=== PATIENT | male | born 1965 | race Caucasian/White ===

== ENCOUNTER 2018-12-17 05:59 | Emergency (ER) | payer SELFPAY ==
[2018-12-17] MEDS ORDERED: ASPIRIN 81 MG CHEWABLE TABLET PO ONE (06:01)
[2018-12-17] MEDS: NITROGLYCERIN 0.4MG SL TABLET #25 BTL SL PRN ×3 (06:07→06:33)
[2018-12-17 06:18] LABS: ABSOLUTE NEUTROPHIL COUNT 4.28; BASO % 0.4 % (0-6); EOS % 2.7 % (0-6); GRAN % 55.7 % (47-80); HEMATOCRIT 39.6 % (42.0-52.0); LYMPH % 32.9 % (16-45); MEAN CELL VOLUME 94.7 fl (81-97); MEAN CORPUSCULAR HEMOGLOBIN 31.1 pg (27-33); MEAN CORPUSCULAR HGB CONC 32.8 g/dl (32-36); MEAN PLATELET VOLUME 10.8 fl (7.4-10.4); MONO % 8.3 % (0-9); PLATELET COUNT 239 K/uL (130-400); RED BLOOD COUNT 4.18 M/uL (4.40-5.70); RED CELL DISTRIBUTION WIDTH 12.5 % (11.5-14.5); WHITE BLOOD COUNT W/O DIFF 7.7 K/uL (4.2-12.2)
[2018-12-17 06:38] LABS: BLOOD UREA NITROGEN 19 mg/dL (6-20); CREATININE 0.9 mg/dL (0.7-1.2); EST GLOMERULAR FILTRATION RATE > 60 mL/min
[2018-12-17 06:39] LABS: TOTAL PROTEIN 7.8 g/dL (6.6-8.7)
[2018-12-17 06:41] LABS: GLUCOSE,RANDOM 98 mg/dL (74-109)
[2018-12-17 06:43] LABS: ALB/GLOB RATIO 1.4 (1.1-1.8); ALBUMIN 4.6 g/dL (4.0-5.0); ALKALINE PHOSPHATASE 72 U/L (40-129); ALT/SGPT 15 U/L (<41); AST/SGOT 36 U/L (10.0-50.0)
[2018-12-17 06:44] LABS: CREATINE PHOSPHOKINASE 145 U/L (39-308)
[2018-12-17 06:46] LABS: CKMB 2.5 ng/mL (<6.73); NTpro B-NATRIURETIC PEPTIDE 22.99 pg/mL (<125)
--- NOTE | 2018-12-17 07:01 | Emergency Department Record ---
History of Present Illness - General Chief Complaint: Chest Pain Stated Complaint: CHEST PAIN Time Seen by Provider: 12/17/18 06:00 Source: Patient Mode of Arrival: Ambulatory Limitations: No limitations - History of Present Illness Initial Comments: pt developed cp last night that is sharp and that gets worse with inspiration. he has never had anything like this before. he has a hx of htn. the pain got worse this am. he smokes. grandparents had cad. pt had a heart cath 4 yrs ago which he said showed nothing. pt has no nausea. pain does radiate down l arm. no nausea but pos sob. MD Complaint: Chest pain Onset/Timin -: Days(s) Pain Location: Left chest Pain Radiation: LUE Severity scale (1-10): 5 Quality: Aching, Dull, Sharp Consistency: Constant Improves With: Rest Worsens With: Inspiration - Related Data Home Medications Medication Instructions Recorded Confirmed Last Taken Amlodipine Besylate 5 mg PO DAILY 12/17/18 12/17/18 12/16/18 Aspirin [Aspir-Low] 81 mg PO DAILY 12/17/18 12/17/18 12/16/18 Allergies Allergy/AdvReac Type Severity Reaction Status Date / Time No Known Drug Allergies Allergy Verified 12/17/18 06:19 Travel Screening - Travel/Exposure Within Last 30 Days Have you traveled within the last 30 days?: No - Travel/Exposure Within Last Year Have you traveled outside the [place] in the last year?: No - Additonal Travel Details Have you been exposed to anyone with a communicable illness?: No - Travel Symptoms Symptom Screening: None Review of Systems Reviewed: No additional complaints except as noted below Constitutional: Reports: As per HPI. Denies: Chills, Fever, Malaise, Night sweats, Weakness, Weight change Eyes: Reports: As per HPI. Denies: Eye discharge, Eye pain, Photophobia, Vision change ENT: Reports: As per HPI. Denies: Congestion, Dental pain, Ear pain, Epistaxis, Hearing loss, Throat pain Respiratory: Reports: As per HPI. Denies: Cough, Dyspnea, Hemoptysis, Stridor, Wheezes Cardiovascular: Reports: As per HPI, Chest pain. Denies: Arrhythmia, Dyspnea on exertion, Edema, Murmurs, Orthopnea, Palpitations, Paroxysmal nocturnal dyspnea, Rheumatic Fever, Syncope Endocrine: Reports: As per HPI. Denies: Fatigue, Heat or cold intolerance, Polydipsia, Polyuria Gastrointestinal: Reports: As per HPI. Denies: Abdominal pain, Constipation, Diarrhea, Hematemesis, Hematochezia, Melena, Nausea, Vomiting Genitourinary: Reports: As per HPI. Denies: Dysuria, Frequency, Hematuria, Incontinence, Retention, Testicular pain, Testicular mass, Urgency Musculoskeletal: Reports: As per HPI. Denies: Arthralgia, Back pain, Gout, Joint swelling, Myalgia, Neck pain Skin: Reports: As per HPI. Denies: Bruising, Change in color, Change in hair/nails, Lesions, Pruritus, Rash Neurological: Reports: As per HPI. Denies: Abnormal gait, Confusion, Headache, Numbness, Paresthesias, Seizure, Tingling, Tremors, Vertigo, Weakness Psychiatric: Reports: As per HPI. Denies: Anxiety, Auditory hallucinations, Depression, Homicidal thoughts, Suicidal thoughts, Visual hallucinations Hematological/Lymphatic: Reports: As per HPI. Denies: Anemia, Blood Clots, Easy bleeding, Easy bruising, Swollen glands Past Medical History - SOCIAL HISTORY Smoking Status: Current every day smoker Alcohol Use: Occasional Drug Use: None - CARDIOVASCULAR Hx Hypertension: Yes - NEURO Hx Dizziness: Yes - GI Hx GI Disorders: No - Hx Genitourinary Disorders: No - PSYCH Hx Anxiety: Yes Family Medical History Any Significant Family History?: Yes Hx HTN: Father, Brother/Sister Physical Exam - General General Appearance: Alert, Oriented x3, Cooperative, Mild distress - Head Head exam: Normal inspection - Eye Eye exam: Normal appearance, PERRL, EOMI Pupils: Normal accommodation - ENT ENT exam: Normal exam, Mucous membranes moist, Normal external ear exam, Normal orophraynx Ear exam: Normal external inspection. negative: External canal tenderness Nasal Exam: Normal inspection. negative: Discharge, Sinus tenderness Mouth exam: Normal external inspection, Tongue normal Teeth exam: Normal inspection. negative: Dental caries Throat exam: Normal inspection. negative: Tonsillar erythema, Tonsillar exudate - Neck Neck exam: Normal inspection, Full ROM. negative: Tenderness - Respiratory Respiratory exam: Normal lung sounds bilaterally. negative: Respiratory distress - Cardiovascular Cardiovascular Exam: Normal rhythm, Normal heart sounds, Tachycardia - GI/Abdominal GI/Abdominal exam: Soft, Normal bowel sounds. negative: Tenderness - Rectal Rectal exam: Deferred - exam: Deferred - Extremities Extremities exam: Normal inspection, Full ROM, Normal capillary refill. negative: Tenderness - Back Back exam: Reports: Normal inspection, Full ROM. 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 ] Respiratory 20 20 16 Rate Blood Pressure 166/95 156/91 130/89 [Left Arm] Pulse Ox 100 96 12/17/18 06:35 Temperature Pulse Rate [ 94 H Biomedical Field Service Engineer ] Respiratory 14 Rate Blood Pressure 128/92 [Left Arm] Pulse Ox 94 L - Reevaluation(s) Reevaluation #1: 12/17/18 07:04 cp went from a 07/10 to 06/10 with ntg Reevaluation #2: 12/17/18 07:20 care being assumed by dr oakes Medical Decision Making - Lab Data Result diagrams: 12/17/18 06:10 12/17/18 06:10 Lab Results 12/17/18 12/17/18 12/17/18 Range/Units 06:10 06:10 06:15 WBC 7.7 (4.2-12.2) K/uL RBC 4.18 L (4.40-5.70) M/uL Hgb 13.0 L (14.0-18.0) gm/dl Hct 39.6 L (42.0-52.0) % MCV 94.7 (81-97) fl MCH 31.1 (27-33) pg MCHC 32.8 (32-36) g/dl RDW 12.5 (11.5-14.5) % Plt Count 239 (130-400) K/uL MPV 10.8 H (7.4-10.4) fl Gran % 55.7 (47-80) % Lymphocytes % 32.9 (16-45) % Monocytes % 8.3 (0-9) % Eosinophils % 2.7 (0-6) % Basophils % 0.4 (0-6) % Absolute Neutrophils 4.28 D-Dimer 1.13 H (0-0.59) mg/L FEU Sodium 139 (136-145) mmol/L Potassium 4.2 (3.4-4.5) mmol/L Chloride 105 (98-107) mmol/L Carbon Dioxide 23.0 (22-29) mmol/L Anion Gap 11.0 (7-16) BUN 19 (6-20) mg/dL Creatinine 0.9 (0.7-1.2) mg/dL Estimated GFR > 60 mL/min Random Glucose 98 (74-109) mg/dL Calcium 9.6 (8.6-10.0) mg/dL Total Bilirubin 0.20 (0.2-1.0) mg/dL AST 36 (10.0-50.0) U/L ALT 15 (<41) U/L Alkaline Phosphatase 72 (40-129) U/L Creatine Kinase 145 (39-308) U/L CK-MB (CK-2) 2.5 (<6.73) ng/mL Troponin T < 0.010 (0-0.010) ng/mL NT-Pro-B Natriuret Pep 22.99 (<125) pg/mL Total Protein 7.8 (6.6-8.7) g/dL Albumin 4.6 (4.0-5.0) g/dL Globulin 3.2 (1.4-4.8) gm/dL Albumin/Globulin Ratio 1.4 (1.1-1.8) Disposition Forms: Patient Portal Access Quality - Quality Measures Quality Measures: N/A - Blood Pressure Screening Does Patient Have Any of the Following: No Blood Pressure Classification: Hypertensive Reading Systolic Measurement: 128 Diastolic Measurement: 92 Screening for High Blood Pressure: < Pre-Hypertensive BP, F/U Documented > [G8950] Pre-Hypertensive Follow-up Interventions: Follow-up with rescreen every year.
[2018-12-17] MEDS ORDERED: KETOROLAC 30 MG/ML VIAL IVP ONE (07:05)
--- NOTE | 2018-12-17 07:58 | CT ANGIOGRAM REPORT ---
EXAMINATION: CT Angiography of the Thorax EXAM DATE: 12/17/2018 7:51 AM TECHNIQUE: Standard protocol CT angiogram images were obtained through the chest following the admini stration of intravenous contrast. Coronal and sagittal MIP 3-D reformations were performed. IV Contrast: The amount and type of contrast are recorded in the medical record. INDICATION: cp w hi d-dimer. COMPARISON: None ENCOUNTER: Not applicable FINDINGS: Pulmonary Artery: No pulmonary embolism is present. Aorta: No thoracic aortic aneurysm or dissection is present. Right Heart Strain: None. Heart : There is no pericardial effusion. Celeste and Mediastinum: No lymphadenopathy. Lung Parenchyma: Right upper lobe granuloma. Bibasilar discoid atelectasis or scarring Central Airways: Normal. Pleural Effusion: None. Upper Abdomen: Unremarkable. Musculoskeletal and Chest Wall: Unremarkable. IMPRESSION: 1. Negative pulmonary CTA 2. Bibasilar discoid atelectasis or scarring 3. Granulomatous disease Dictated by: Zechariah Porter MD on 12/17/2018 7:51 AM. .
--- NOTE | 2018-12-17 08:36 | Emergency Department Record ---
History of Present Illness - General Chief Complaint: Chest Pain Stated Complaint: CHEST PAIN Time Seen by Provider: 12/17/18 06:00 Source: Patient Mode of Arrival: Ambulatory Limitations: No limitations - History of Present Illness Onset/Timin -: Days(s) Pain Location: Left chest Pain Radiation: LUE Severity scale (1-10): 5 Quality: Aching, Dull, Sharp Consistency: Constant Improves With: Rest Worsens With: Inspiration - Related Data Home Medications Medication Instructions Recorded Confirmed Last Taken Amlodipine Besylate 5 mg PO DAILY 12/17/18 12/17/18 12/16/18 Aspirin [Aspir-Low] 81 mg PO DAILY 12/17/18 12/17/18 12/16/18 Allergies Allergy/AdvReac Type Severity Reaction Status Date / Time No Known Drug Allergies Allergy Verified 12/17/18 06:19 Travel Screening - Travel/Exposure Within Last 30 Days Have you traveled within the last 30 days?: No - Travel/Exposure Within Last Year Have you traveled outside the [place] in the last year?: No - Additonal Travel Details Have you been exposed to anyone with a communicable illness?: No - Travel Symptoms Symptom Screening: None Review of Systems Constitutional: Reports: As per HPI. Denies: Chills, Fever, Malaise, Night sweats, Weakness, Weight change Eyes: Reports: As per HPI. Denies: Eye discharge, Eye pain, Photophobia, Vision change ENT: Reports: As per HPI. Denies: Congestion, Dental pain, Ear pain, Epistaxis, Hearing loss, Throat pain Respiratory: Reports: As per HPI. Denies: Cough, Dyspnea, Hemoptysis, Stridor, Wheezes Cardiovascular: Reports: As per HPI, Chest pain. Denies: Arrhythmia, Dyspnea on exertion, Edema, Murmurs, Orthopnea, Palpitations, Paroxysmal nocturnal dyspnea, Rheumatic Fever, Syncope Endocrine: Reports: As per HPI. Denies: Fatigue, Heat or cold intolerance, Polydipsia, Polyuria Gastrointestinal: Reports: As per HPI. Denies: Abdominal pain, Constipation, Diarrhea, Hematemesis, Hematochezia, Melena, Nausea, Vomiting Genitourinary: Reports: As per HPI. Denies: Dysuria, Frequency, Hematuria, Incontinence, Retention, Testicular pain, Testicular mass, Urgency Musculoskeletal: Reports: As per HPI. Denies: Arthralgia, Back pain, Gout, Shala int swelling, Myalgia, Neck pain Skin: Reports: As per HPI. Denies: Bruising, Change in color, Change in hair/nails, Lesions, Pruritus, Rash Neurological: Reports: As per HPI. Denies: Abnormal gait, Confusion, Headache, Numbness, Paresthesias, Seizure, Tingling, Tremors, Vertigo, Weakness Psychiatric: Reports: As per HPI. Denies: Anxiety, Auditory hallucinations, Depression, Homicidal thoughts, Suicidal thoughts, Visual hallucinations Hematological/Lymphatic: Reports: As per HPI. 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 Tovar for disposition after the CTA and presently the patient is doing very well and is pain free. I did discuss the neg workup and including EKG, cardiac enzymes, and chest CTA. Due to the fact the etiology of the patient's pain is not clear we did recommend hospital admission for repeat cardiac enzymes and a stress test. The patient is refusing that plan and would like to go home. I did explain the risks of leaving are that the patient could go home and have a return of the pain, have an [place], stroke, become disabled and even . The patient understands and accepts the risks. Presently he has proper decision making capacity and is instructed to see his PCP next week for recheck and to return to the ER for any worsening symptoms or return of the symptoms. 12/17/18 08:31 Medical Decision Making - Lab Data Result diagrams: 12/17/18 06:10 12/17/18 06:10 Lab Results 12/17/18 12/17/18 12/17/18 Range/Units 06:10 06:10 06:15 WBC 7.7 (4.2-12.2) K/uL RBC 4.18 L (4.40-5.70) M/uL Hgb 13.0 L (14.0-18.0) gm/dl Hct 39.6 L (42.0-52.0) % MCV 94.7 (81-97) fl MCH 31.1 (27-33) pg MCHC 32.8 (32-36) g/dl RDW 12.5 (11.5-14.5) % Plt Count 239 (130-400) K/uL MPV 10.8 H (7.4-10.4) fl Gran % 55.7 (47-80) % Lymphocytes % 32.9 (16-45) % Monocytes % 8.3 (0-9) % Eosinophils % 2.7 (0-6) % Basophils % 0.4 (0-6) % Absolute Neutrophils 4.28 D-Dimer 1.13 H (0-0.59) mg/L FEU Sodium 139 (136-145) mmol/L Potassium 4.2 (3.4-4.5) mmol/L Chloride 105 (98-107) mmol/L Carbon Dioxide 23.0 (22-29) mmol/L Anion Gap 11.0 (7-16) BUN 19 (6-20) mg/dL Creatinine 0.9 (0.7-1.2) mg/dL Estimated GFR > 60 mL/min Random Glucose 98 (74-109) mg/dL Calcium 9.6 (8.6-10.0) mg/dL Total Bilirubin 0.20 (0.2-1.0) mg/dL AST 36 (10.0-50.0) U/L ALT 15 (<41) U/L Alkaline Phosphatase 72 (40-129) U/L Creatine Kinase 145 (39-308) U/L CK-MB (CK-2) 2.5 (<6.73) ng/mL Troponin T < 0.010 (0-0.010) ng/mL NT-Pro-B Natriuret Pep 22.99 (<125) pg/mL Total Protein 7.8 (6.6-8.7) g/dL Albumin 4.6 (4.0-5.0) g/dL Globulin 3.2 (1.4-4.8) gm/dL Albumin/Globulin Ratio 1.4 (1.1-1.8) Disposition Disposition: Discharge Clinical Impression: Chest pain, atypical Disposition: Against Medical Advice Condition: (2) Stable Instructions: Chest Pain (ED) Additional Instructions: Please continue your regular medicines and please return to the ER for any worsening symptoms. Please take Motrin or Tylenol for pain. Forms: Patient Portal Access Time of Disposition: 08:35 Quality - Quality Measures Quality Measures: N/A - Blood Pressure Screening View Details: Yes Does Patient Have Any of the Following: No Blood Pressure Classification: Hypertensive Reading Systolic Measurement: 125 Diastolic Measurement: 92 Screening for High Blood Pressure: < First Hypertensive BP, F/U Documented > [G8 950] First Hypertensive Follow-up Interventions: Referral to alternative/primary care provider.
== END 2018-12-17 08:45 | disposition left against medical advice (07) ==
LOC: ER 05:59
DX: R07.89 Other chest pain (principal); R79.89 Other specified abnormal findings of blood chemistry; I10 Essential (primary) hypertension; F17.210 Nicotine dependence, cigarettes, uncomplicated
CPT/HCPCS: 99284 ×2; 96374; 82550; 85025; 82553; 80053; 84484; 85379; 83880; 71275; 93005; 93010; Q9967; J1885